=== PATIENT | male | born 1945 | race Caucasian/White ===

== ENCOUNTER → 2016-05-13 | Outpatient (CLI) | payer OTHER ==
[2016-05-13 16:27] LABS: BLOOD UREA NITROGEN 34 mg/dL (7-22); BUN/CREATININE RATIO 18.88 (6-20); CALCIUM 9.2 mg/dL (8.7-10.7); CHLORIDE 102 meq/L (98-112); CREATININE 1.8 mg/dL (0.70-1.50); GLUCOSE 80 mg/dL (78-110); POTASSIUM 4.3 meq/L (3.8-5.2); SODIUM 141 meq/L (135-145)
== END ==
LOC: MOB LAB 14:08
DX: E11.9 Type 2 diabetes mellitus without complications (principal); I12.9 Hypertensive chronic kidney disease with stage 1 through stage 4 chronic kidney disease, or unspecified chronic kidney disease; N18.3 Chronic kidney disease, stage 3 (moderate); I25.10 Atherosclerotic heart disease of native coronary artery without angina pectoris; N20.0 Calculus of kidney; E78.5 Hyperlipidemia, unspecified; I67.9 Cerebrovascular disease, unspecified; E79.0 Hyperuricemia without signs of inflammatory arthritis and tophaceous disease
CPT/HCPCS: 36415; 80048; G0463; 99213

== ENCOUNTER → 2016-08-05 | Outpatient (CLI) | payer OTHER ==
--- NOTE | 2016-08-05 13:24 | EKG ---
[address] [address] Measurements Intervals [place] Rate: 55 P: 24 IA: 196 QRS: -43 QRSD: 139 T: 138 QT: 451 QTc: 440 Interpretive Statements SINUS RHYTHM MARKED LEFT AXIS DEVIATION [QRS AXIS < -30] INTRAVENTRICULAR CONDUCTION DELAY [130+ ms QRS DURATION] SEPTAL MYOCARDIAL INFARCTION [40+ ms Q WAVE IN V1/V2], OF INDETERMINATE AGE Compared to ECG 08/07/2015 09:17:48 Intraventricular conduction delay now present Myocardial infarct finding now present Sinus bradycardia no longer present First degree AV block no longer present Left bundle-branch block no longer present Electronically Signed On 08-06-16 08:10:27 MDT by Jamey Massey MD [email or web address]
== END ==
LOC: EKG 11:30
PROVIDERS: ATTEND Specialist
DX: I25.10 Atherosclerotic heart disease of native coronary artery without angina pectoris (principal); I45.89 Other specified conduction disorders
CPT/HCPCS: 93005; 93010